=== PATIENT | female | born 1970 | race Caucasian/White ===

== ENCOUNTER 2023-12-31 06:00 | Outpatient (CLI) | payer SELFPAY | END 2023-12-31 06:01 | disposition home or self-care (01) | LOC: RAD 01-20 09:30 | PROVIDERS: PCP Nurse Practitioner Family; Visit Provider Nurse Practitioner Family | DX: R19.7 Diarrhea, unspecified (principal); Z13.6 Encounter for screening for cardiovascular disorders | CPT/HCPCS: 80053; 80061; 82607; 83540; 83735; 84443; 85025; 87045; 87177; 87209; 87338; 87427; 87449; 87493 ==

== ENCOUNTER 2024-03-31 15:59 | Outpatient (CLI) | payer OTHER, SELFPAY ==
--- NOTE | 2024-03-31 16:00 | MM_ITS ---
WS: [id number] BILATERAL 3D TOMOSYNTHESIS DIGITAL SCREENING MAMMOGRAPHY WITH CAD CLINICAL INFORMATION: Z12.39 - Encounter for other screening for malignant neop... HISTORY: Screening mammogram. No current complaints. COMPARISON: None. TECHNIQUE: Bilateral CC and MLO views. FINDINGS: Scattered fibroglandular densities bilaterally. No suspicious focal mass, asymmetry, calcifications, or architectural distortion. No evidence of malignancy. Incidental skin calcifications. A few inciden nolan axillary tail lymph nodes. MM/MM scr tomosynthesis [id number] IMPRESSION: DENSITY: There are scattered areas of fibroglandular density. BI-RADS: 2 - Benign. FOLLOW UP: 1 Year Follow-up Recommend return to annual screening mammography.
== END 2024-03-31 16:00 | disposition home or self-care (01) ==
PROVIDERS: PCP Nurse Practitioner Family; Visit Provider Nurse Practitioner Family
DX: Z12.31 Encounter for screening mammogram for malignant neoplasm of breast (principal)
CPT/HCPCS: 77063; 77067